=== PATIENT | male | born 1995 | race Caucasian/White ===

== ENCOUNTER → 2017-05-17 | Outpatient (CLI) | payer BC, OTHER ==
--- NOTE | 2017-05-17 11:41 | DIAGNOSTIC IMAGING REPORT ---
LEFT ANKLE 3 VIEWS, OBLIQUE STANDING VIEWS OF BILATERAL ANKLES HISTORY: LEFT ANKLE PAIN COMPARISON: None. FINDINGS: There is no fracture or dislocation. Soft tissues are unremarkable. No radiopaque foreign bodies. No abnormality within the right ankle. IMPRESSION: Unremarkable left ankle. Electronically signed by: Chon Barber M.D. 05/17/2017 11:40 AM Dictated Date/Time: 05/17/2017 11:37 AM
== END | disposition home or self-care (01) ==
LOC: C.RDSM 08:00
PROVIDERS: ATTEND Internal Medicine
DX: M25.572 Pain in left ankle and joints of left foot (principal); M25.571 Pain in right ankle and joints of right foot